=== PATIENT | female | born 1995 | race Caucasian/White ===

== ENCOUNTER 2018-09-03 12:59 | Emergency (ER) | payer OTHER ==
[2018-09-03 16:01] LABS: ABS Basophils 0 10^3/ul (0-0.2); ABS Eosinophils 0.1 10^3/ul (0-0.6); ABS Lymphocytes 1.7 10^3/ul (1.0-4.8); ABS Monocytes 0.4 10^3/ul (0-0.8); ABS Neutrophils 4.5 10^3/ul (1.5-7.7); ABS Nucleated RBC 0 10^3/ul; Eosinophil % 1.3 %; Hematocrit 42 % (35-47); Hemoglobin 14.1 g/dl (12.0-16.0); Lymphocyte % 25.1 %; Mean Corpuscular HGB Conc 34 g/dl (31-36); Mean Corpuscular Hemoglobin 28 pg (27-31); Mean Corpuscular Volume 83 fL (80-97); Mean Platelet Volume 7.5 fL (7.4-10.4); Nucleated Red Blood Cells % 0; Platelet Count 273 10^3/ul (150-450); Red Blood Count 5.11 10^6/ul (4.00-5.40); Red Cell Distribution Width 13 % (10.5-15); White Blood Count 6.7 10^3/ul (3.5-10.8)
[2018-09-03 16:14] LABS: ALT 27 U/L (7-52); AST 22 U/L (13-39); Albumin 4.3 g/dL (3.2-5.2); Albumin/Globulin Ratio 1.5 (1-3); Alkaline Phosphatase 68 U/L (34-104); Anion Gap 8 mmol/L (2-11); BUN/Creatinine Ratio 20.3 (8-20); Blood Urea Nitrogen 12 mg/dL (6-24); CO2 Carbon Dioxide 23 mmol/L (22-32); Calcium 9.1 mg/dL (8.6-10.3); Chloride 104 mmol/L (101-111); Creatine Kinase 62 U/L (10-223); EGFR Non-African American 128.7 (>60); Globulin 2.8 g/dL (2-4); Glucose 93 mg/dL (70-100); Magnesium 2.1 mg/dL (1.9-2.7); Potassium 4.1 mmol/L (3.5-5.0); Sodium 135 mmol/L (135-145); Total Protein 7.1 g/dL (6.4-8.9)
[2018-09-03 16:20] LABS: HCG Pregnancy < 0.60 mIU/mL
--- NOTE | 2018-09-03 16:57 | ED ---
Abdominal Pain/Female - HPI Summary HPI Summary: Patient is a 22-year-old female presenting to the ED from Dr. Roldan's office with RLQ pain which has been worsening over the course of the last 2 days. She states this has been somewhat nauseous as well. Endorses pain at a 7/10, constant and stabbing. The pain is worse with palpation to the left side, however she feels it to the RLQ. She states it is similar to her menstrual cycle where she endorses a 10/10 pain, however is currently not on her cycle and usually that is bilateral. She has been told in the past she has some components of the PCO S, however does not have multiple cysts. She has never had a transvaginal ultrasound. Patient denies any sexual activity, abnormal vaginal discharge, vaginal bleeding, UTI symptoms, hematuria, back pain, vomiting, diarrhea, constipation. She denies any fevers, however has been endorsing some sweats and chills. She states pain medications do not usually improve her symptoms dramatically and continues to take 800 mg ibuprofen for any discomfort. This was prescribed by her PCP for menstrual pain. Patient otherwise takes no medications. History of obesity. - History of Current Complaint Chief Complaint: EDAbdPain Stated Complaint: PAIN IN LOWER RIGHT ABD Time Seen by Provider: 09/03/18 15:16 Hx Obtained From: Patient ?: No Onset/Duration: Sudden Onset Timing: Constant Severity Initially: Mild Severity Currently: Mild Pain Intensity: 8 Pain Scale Used: 0-10 Numeric Location: Discrete At: RLQ Character: Sharp Aggravating Factor(s): Nothing Alleviating Factor(s): Nothing Associated Signs and Symptoms: Positive: Nausea - Risk Factors Ectopic Risk Factor: Negative Ovarian Torsion Risk Factor: Reproductive Age, Ovarian Cysts/Tumors Allergies/Adverse Reactions: Allergies Allergy/AdvReac Type Severity Reaction Status Date / Time azithromycin Allergy Severe Shakes Verified 09/03/18 13:38 PMH/Surg Hx/FS Hx/Imm Hx Previously Healthy: Yes - Immunization History Hx Pertussis Vaccination: No Immunizations Up to Date: Yes Infectious Disease History: No Infectious Disease History: Denies: Traveled Outside the [place] in Last 30 Days - Social History Occupation: Unemployed Lives: With Family Alcohol Use: Rare Hx Substance Use: No Substance Use Type: Reports: None Smoking Status (MU): Never Smoked Tobacco Review of Systems Constitutional: Negative Negative: Fever, Chills, Fatigue, Skin Diaphoresis Negative: Epistaxis, Dental Pain Negative: Palpitations, Chest Pain Negative: Shortness Of Breath, Cough Positive: Abdominal Pain, Nausea. Negative: Vomiting, Diarrhea Genitourinary: Negative Positive: no symptoms reported, see HPI Negative: Rash Neurological: Negative All Other Systems Reviewed And Are Negative: Yes Physical Exam Triage Information Reviewed: Yes Vital Signs On Initial Exam: Initial Vitals Temp Pulse Resp BP Pulse Ox 99.2 F 89 18 147/99 100 09/03/18 13:24 09/03/18 13:24 09/03/18 13:24 09/03/18 13:24 09/03/18 13:24 Vital Signs Reviewed: Yes Appearance: Positive: Well-Appearing, Well-Nourished Skin: Positive: Warm, Skin Color Reflects Adequate Perfusion Head/Face: Positive: Normal Head/Face Inspection Eyes: Positive: EOMI, AMINAH, Conjunctiva Clear Neck: Positive: Supple, No Lymphadenopathy Respiratory/Lung Sounds: Positive: Clear to Auscultation, Breath Sounds Present Cardiovascular: Positive: RRR, Pulses are Symmetrical in both Upper and Lower Extremities Abdomen Description: Positive: Nontender, No Organomegaly, Soft, McBurney's Point Tenderness. Negative: CVA Tenderness (R), CVA Tenderness (L), Distended, Guarding, Splenomegaly Bowel Sounds: Positive: Present Musculoskeletal: Positive: Normal, Strength/ROM Intact Neurological: Positive: Sensory/Motor Intact, Alert, Oriented to Person Place, Time, Speech Normal Psychiatric: Positive: Normal, Affect/Mood Appropriate AVPU Assessment: Alert Diagnostics - Vital Signs Vital Signs Temp Pulse Resp BP Pulse Ox 09/03/18 13:24 99.2 F 89 18 147/99 100 - Laboratory Lab Results: Lab Results 09/03/18 09/03/18 09/03/18 Range/Units 14:50 14:50 14:50 WBC 6.7 (3.5-10.8) 10^3/ul RBC 5.11 (4.00-5.40) 10^6/ul Hgb 14.1 (12.0-16.0) g/dl Hct 42 (35-47) % MCV 83 (80-97) fL MCH 28 (27-31) pg MCHC 34 (31-36) g/dl RDW 13 (10.5-15) % Plt Count 273 (150-450) 10^3/ul MPV 7.5 (7.4-10.4) fL Neut % (Auto) 67.1 % Lymph % (Auto) 25.1 % [place] % (Auto) 5.9 % Eos % (Auto) 1.3 % Baso % (Auto) 0.6 % Absolute Neuts (auto) 4.5 (1.5-7.7) 10^3/ul Absolute Lymphs (auto) 1.7 (1.0-4.8) 10^3/ul Absolute Monos (auto) 0.4 (0-0.8) 10^3/ul Absolute Eos (auto) 0.1 (0-0.6) 10^3/ul Absolute Basos (auto) 0 (0-0.2) 10^3/ul Absolute Nucleated RBC 0 10^3/ul Nucleated RBC % 0 Sodium 135 (135-145) mmol/L Potassium 4.1 (3.5-5.0) mmol/L Chloride 104 (101-111) mmol/L Carbon Dioxide 23 (22-32) mmol/L Anion Gap 8 (2-11) mmol/L BUN 12 (6-24) mg/dL Creatinine 0.59 (0.51-0.95) mg/dL Est GFR ( Amer) 155.7 (>60) Est GFR (Non-Af Amer) 128.7 (>60) BUN/Creatinine Ratio 20.3 H (8-20) Glucose 93 (70-100) mg/dL Lactic Acid 0.5 (0.5-2.0) mmol/L Calcium 9.1 (8.6-10.3) mg/dL Magnesium 2.1 (1.9-2.7) mg/dL Total Bilirubin 1.00 (0.2-1.0) mg/dL AST 22 (13-39) U/L ALT 27 (7-52) U/L Alkaline Phosphatase 68 (34-104) U/L Total Creatine Kinase 62 (10-223) U/L C-Reactive Protein 7.50 (<8.01) mg/L Total Protein 7.1 (6.4-8.9) g/dL Albumin 4.3 (3.2-5.2) g/dL Globulin 2.8 (2-4) g/dL Albumin/Globulin Ratio 1.5 (1-3) Lipase < 10 L (11.0-82.0) U/L Beta HCG, Quant < 0.60 mIU/mL Result Diagrams: 09/03/18 14:50 09/03/18 14:50 Lab Statement: Any lab studies that have been ordered have been reviewed, and results considered in the medical decision making process. Abdominal Pain Fem Course/Dx - Course Course Of Treatment: Course treatment, the patient's evaluated for RLQ pain and nausea. She declines any pain medication and nausea medication on arrival. This patient is 235lbs, CT abdomen and pelvis obtained as we are unable to obtain an ultrasound of the RLQ. Vital signs are stable on arrival. 99.2, heart rate 89, respirations 18, BP 147/99. Discussed case with Dr. Roldan at 3 :30 PM who states she was slightly febrile in the office at 99.7. Dr. Roldan' s concern for appendicitis versus ovarian cyst. On physical examination, patient appears well and in no acute distress. She is nontoxic in appearing and nondiaphoretic. Positive Rovsing sign, minimal tenderness over McBurney's point. Positive psoas, obturator not obtained. CT abdomen and pelvis: no appendicitis. Bilateral adnexal cystic structuresk likely arising from the ovaries. These could be further evaluated with pelvic US if indicated. Discussed results/findings with patient. She continues to have RLQ pain, but rates the pain 5/10. She continues to appear comfortable. I have offered pain control and she is given tramadol 50mg and rx is sent. Zofran rx sent. She is to follow up with our OBGYN. Findings likely represent physiologic cysts. She may need further workup for PCOS. Patient is afebrile and stable. I believe she is safe for discharge and she is given return precautions. Mother is at bedside and agrees with plan. - Diagnoses Differential Diagnosis: Positive: Appendicitis, Constipation, Ovarian Cyst, Urinary Tract Infection Provider Diagnoses: Follicular cyst of ovary, RLQ abdominal pain Discharge - Sign-Out/Discharge Documenting (check all that apply): Patient Departure - Discharge Plan Condition: Stable Disposition: HOME Prescriptions: Ondansetron ODT TAB* [Zofran 4 MG Odt TAB*] 4 mg PO Q6H PRN #12 tab.odt MDD 4 PRN Reason: Nausea traMADol TAB* [Ultram*] 50 mg PO Q8H PRN #15 tab MDD 3 PRN Reason: Pain Referrals: Stacia Chou MD [Primary Care Provider] - Additional Instructions: I discussed, return to the ED if he develop any worsening or changing symptoms Tylenol 650 mg 3 times daily Ibuprofen 800 mg 3 times daily Use these intermittently You may also use tramadol 50 mg 3 times daily for extra pain control Zofran as needed for nausea - Billing Disposition and Condition Condition: STABLE Disposition: Home
[2018-09-03 17:04] LABS: Urine Appearance Clear; Urine Bacteria 1+ (Absent); Urine Bilirubin Negative (Negative); Urine Blood 2+ (Negative); Urine Color Straw; Urine Glucose Negative (Negative); Urine Ketones Negative (Negative); Urine Nitrite Negative (Negative); Urine Protein Negative (Negative); Urine Red Blood Cell Trace(0-2/hpf) (Absent); Urine Specific Gravity 1.008 (1.010-1.030); Urine Urobilinogen Negative (Negative); Urine White Blood Cell Trace(0-5/hpf) (Absent)
[2018-09-03] MEDS ORDERED: Iohexol 300* (CONTRAST) 10 ML SDV IV ONE (17:20)
[2018-09-03] MEDS ORDERED: Tramadol ER(NF) 100 MG TAB.ER PO PRN (19:21)
[2018-09-03] MEDS ORDERED: traMADol TAB* 50 MG PO ONE (19:25)
[2018-09-03 19:42] VITALS: BP 143/90
== END 2018-09-03 19:40 | disposition home or self-care (01) ==
LOC: ED 12:59
DX: R10.31 Right lower quadrant pain (principal); N83.02 Follicular cyst of left ovary; N83.01 Follicular cyst of right ovary; R11.0 Nausea; Z88.1 Allergy status to other antibiotic agents
CPT/HCPCS: 36415; 74177; 80053; 81003; 81015; 82550; 83605; 83690; 83735; 84702; 85025; 86140; 87040; 87086; 99282; A9270-GY; Q9967

== ENCOUNTER 2019-06-23 15:58 | Emergency (ER) | payer OTHER ==
[2019-06-23 18:12] LABS: ABS Basophils 0.1 10^3/ul (0-0.2); ABS Eosinophils 0.2 10^3/ul (0-0.6); ABS Lymphocytes 2.2 10^3/ul (1.0-4.8); ABS Monocytes 0.5 10^3/ul (0-0.8); ABS Neutrophils 4.7 10^3/ul (1.5-7.7); Hematocrit 40 % (35-47); Hemoglobin 13.5 g/dL (12.0-16.0); Lymphocyte % 28.9 %; Mean Corpuscular HGB Conc 34 g/dL (31-36); Mean Corpuscular Hemoglobin 27 pg (27-31); Mean Corpuscular Volume 81 fL (80-97); Mean Platelet Volume 7.4 fL (7.4-10.4); Platelet Count 259 10^3/uL (150-450); Red Blood Count 4.95 10^6 /uL (3.70-4.87); Red Cell Distribution Width 15 % (10-15); White Blood Count 7.7 10^3/uL (3.5-10.8)
[2019-06-23] MEDS ORDERED: NS 0.9% 1000 ML** 1,000 ML IV ONE (18:22)
--- NOTE | 2019-06-23 18:22 | ED ---
Dizziness - HPI Summary HPI Summary: Patient complains of hour-long episode of lightheadedness, heavy limbs, posterior headache and panic attack. Lightheadedness and panic have resolved, headache remains persistent but is now mild. Denies new medications, new supplements,'s states she hydrates regularly with water. Denies fever, cough, sore throat, CP, SOB, N/V/V abdominal pain, change in urine, change in BM. Medical history is asthma, possible PCOS. - History Of Current Complaint Chief Complaint: EDDizziness Stated Complaint: DIZZY,SEVERE HEADACHE,NAUSEA PER MOM Time Seen by Provider: 06/23/19 18:12 Hx Obtained From: Patient Onset/Duration: Still Present, Resolved Timing: Minutes Severity Initially: Moderate Severity Currently: Mild Character: Lightheaded Aggravating Factor(s): Nothing Alleviating Factor(s): Nothing Associated Signs And Symptoms: Positive: Negative - Allergies/Home Medications Allergies/Adverse Reactions: Allergies Allergy/AdvReac Type Severity Reaction Status Date / Time azithromycin Allergy Severe Shakes Verified 09/03/18 13:38 Home Medications: Home Medications Ibuprofen TAB* [Advil TAB*] 800 mg PO Q6H PRN 06/23/19 [History Confirmed ] Mometasone NASAL (NF) [Nasonex (NF)] 50 mcg BOTH NARES DAILY 06/23/19 [History Confirmed 06/23/19] Olopatadine 0.1% OPHTH (NF) [Patanol 0.1% OPHTH (NF)] 1 drop BOTH EYES BID 06/23 [History Confirmed 06/23/19] PMH/Surg Hx/FS Hx/Imm Hx Endocrine/Hematology History: Denies: Hx Diabetes Cardiovascular History: Denies: Hx Hypertension History: Denies: Hx Dialysis Sensory History: Denies: Hx Eye Prosthesis Opthamlomology History: Denies: Hx Legally Blind EENT History: Denies: Hx Deafness Neurological History: Denies: Hx Dementia Infectious Disease History: No Infectious Disease History: Denies: Traveled Outside the [place] in Last 30 Days - Family History Known Family History: Positive: Non-Contributory - Social History Alcohol Use: Weekly Alcohol Amount: about a 12-pack per week Hx Substance Use: No Substance Use Type: Reports: None Smoking Status (MU): Never Smoked Tobacco Review of Systems Constitutional: Negative Eyes: Negative ENT: Negative Cardiovascular: Negative Respiratory: Negative Gastrointestinal: Negative Genitourinary: Negative Musculoskeletal: Negative Skin: Negative Positive: Headache Psychological: Normal All Other Systems Reviewed And Are Negative: Yes Physical Exam Triage Information Reviewed: Yes Vital Signs On Initial Exam: Initial Vitals Temp Pulse Resp BP Pulse Ox 98.8 F 79 17 154/90 99 06/23/19 16:00 06/23/19 16:00 06/23/19 16:00 06/23/19 16:00 06/23/19 16:00 Vital Signs Reviewed: Yes Appearance: Positive: Well-Appearing Skin: Positive: Warm Head/Face: Positive: Normal Head/Face Inspection Eyes: Positive: Normal ENT: Positive: Normal ENT inspection Neck: Positive: Supple Respiratory/Lung Sounds: Positive: Clear to Auscultation Cardiovascular: Positive: Normal Abdomen Description: Positive: Nontender Musculoskeletal: Positive: Normal Neurological: Positive: Normal Psychiatric: Positive: Normal AVPU Assessment: Alert - Rolf Coma Scale Best Eye Response: 4 - Spontaneous Best Motor Response: 6 - Obeys Commands Best Verbal Response: 5 - Oriented Coma Scale Total: 15 Procedures - Sedation Patient Received Moderate/Deep Sedation with Procedure: No Diagnostics - Vital Signs Vital Signs Temp Pulse Resp BP Pulse Ox 06/23/19 16:00 98.8 F 79 17 154/90 99 - Laboratory Lab Results: Lab Results 06/23/19 Range/Units 18:06 WBC 7.7 (3.5-10.8) 10^3/uL RBC 4.95 H (3.70-4.87) 10^6 /uL Hgb 13.5 (12.0-16.0) g/dL Hct 40 (35-47) % MCV 81 (80-97) fL MCH 27 (27-31) pg MCHC 34 (31-36) g/dL RDW 15 (10-15) % Plt Count 259 (150-450) 10^3/uL MPV 7.4 (7.4-10.4) fL Neut % (Auto) 61.4 % Lymph % (Auto) 28.9 % [place] % (Auto) 6.9 % Eos % (Auto) 2.0 % Baso % (Auto) 0.8 % Absolute Neuts (auto) 4.7 (1.5-7.7) 10^3/ul Absolute Lymphs (auto) 2.2 (1.0-4.8) 10^3/ul Absolute Monos (auto) 0.5 (0-0.8) 10^3/ul Absolute Eos (auto) 0.2 (0-0.6) 10^3/ul Absolute Basos (auto) 0.1 (0-0.2) 10^3/ul Absolute Nucleated RBC 0.0 10^3/ul Nucleated RBC % 0.0 Result Diagrams: 06/23/19 18:06 06/23/19 18:06 Lab Statement: Any lab studies that have been ordered have been reviewed, and results considered in the medical decision making process. Dizzy Course/Dx - Course Course Of Treatment: Patient complains of hour-long episode of lightheadedness, heavy limbs, posterior headache and panic attack. Lightheadedness and panic have resolved, headache remains persistent but is now mild. Denies new medications, new supplements,'s states she hydrates regularly with water. Denies fever, cough, sore throat, CP, SOB, N/V/V abdominal pain, change in urine , change in BM. Medical history is asthma, possible PCOS. Vital signs within normal limits. Labs unremarkable. EKG sinus rhythm, heart rate 67, normal P axis, no prior on record. Symptoms completely resolved after 1 L normal saline. - Diagnoses Provider Diagnoses: Lightheadedness, Headache Discharge ED - Sign-Out/Discharge Documenting (check all that apply): Patient Departure - Discharge Plan Condition: Stable Disposition: HOME Patient Education Materials: Acute Headache (ED), Lightheadedness (ED) Referrals: Maurice Pond MD [Primary Care Provider] - Additional Instructions: Drink plenty of fluids to maintain hydration. Alternate ibuprofen 600 mg with Tylenol 650 mg every 3 hours for headache if needed. Follow-up with primary care. - Billing Disposition and Condition Condition: STABLE Disposition: Home - Attestation Statements Provider Attestation: I was available for consult. This patient was seen by the [facility]. The patient was not presented to, seen by, or examined by me. Ambrose Murphy MD
[2019-06-23 18:32] LABS: Albumin 4.2 g/dL (3.2-5.2); Albumin/Globulin Ratio 1.4 (1-3); BUN/Creatinine Ratio 16.7 (8-20); C Reactive Protein 10.78 mg/L (<8.01); Calcium 9.4 mg/dL (8.6-10.3); EGFR African American 111.7 (>60); EGFR Non-African American 92.4 (>60); Globulin 2.9 g/dL (2-4); Magnesium 2.1 mg/dL (1.9-2.7); Potassium 3.6 mmol/L (3.5-5.0); Total Bilirubin 0.8 mg/dL (0.2-1.0); Total Protein 7.1 g/dL (6.4-8.9)
[2019-06-23] MEDS ORDERED: Ibuprofen TAB* 600 MG PO ONE (20:18)
[2019-06-23] MEDS ORDERED: diPHENhydraMINE PO* 50 MG PO ONE (20:19)
[2019-06-23] MEDS ORDERED: Metoclopramide TAB* 10 MG PO ONE (20:19)
[2019-06-23 20:35] VITALS: BP 141/80
== END 2019-06-23 20:22 | disposition home or self-care (01) ==
LOC: ED 15:58
DX: R42 Dizziness and giddiness (principal); R51 Headache; Z88.1 Allergy status to other antibiotic agents
CPT/HCPCS: 36415; 80053; 83735; 85025; 86140; 93005; 96360; 99283; A9270-GY